=== PATIENT | female | born 1980 | race Asian ===

== ENCOUNTER 2021-10-04 11:03 | Emergency (ER) | payer BC ==
[2021-10-04] MEDS ORDERED: Sodium Chloride 0.9% 2.5 ML Syringe FLUSH PRN (11:37)
[2021-10-04] MEDS ORDERED: Sodium Chloride 0.9% 10 ML Syringe FLUSH PRN (11:37)
[2021-10-04] MEDS ORDERED: Sodium Chloride 0.9% 1,000 ML IV ONE (11:44)
[2021-10-04] MEDS ORDERED: Ondansetron 4 MG/2 ML SDV IVPUSH ONE (11:44)
[2021-10-04 12:02] LABS: BLOOD UREA NITROGEN,BUN 28 mg/dL (7.0-18.0); CARBON DIOXIDE,CO2 24.4 mmol/L (21.0-32.0); CHLORIDE,CL 103 mmol/L (98-107); GLUCOSE RANDOM 87 mg/dL (74-106); LIPASE 130 U/L (73-393); POTASSIUM,K 3.9 mmol/L (3.5-5.1); SODIUM,NA 137 mmol/L (136-145)
[2021-10-04 13:16] LABS: C. TRACHOMATIS BY PCR NOT DETECTED; N. GONORRHOEAE BY PCR NOT DETECTED
== END 2021-10-04 13:57 | disposition home or self-care (01) ==
LOC: MW.ED 11:03
DX: N76.0 Acute vaginitis (principal); B96.89 Other specified bacterial agents as the cause of diseases classified elsewhere
CPT/HCPCS: 36415; 76830; 80053; 81001; 83690; 84484; 84703; 85025; 87480; 87491; 87510; 87591; 87660; 93005; 96374; 99284; J2405; J3490; J7030

== ENCOUNTER 2021-12-06 06:34 | Day surgery (SDC) | payer BC ==
[~2021-12-06 06:34] MED LIST: Lactated Ringers 1,000 ML IV SCH
[2021-12-06] MEDS ORDERED: Propofol 200 MG/20 ML SDV ONE (07:22)
[2021-12-06] MEDS ORDERED: fentaNYL 100 MCG/2 ML SDV ONE (07:22)
[2021-12-06] MEDS ORDERED: Glycopyrrolate 0.2 MG/ML SDV ONE (08:14)
== END 2021-12-06 09:00 | disposition home or self-care (01) ==
LOC: MW.SDS 06:34
PROVIDERS: ATTEND Surgery
DX: K92.1 Melena (principal); K64.4 Residual hemorrhoidal skin tags; K64.8 Other hemorrhoids; G47.00 Insomnia, unspecified; Z87.891 Personal history of nicotine dependence; Z98.890 Other specified postprocedural states
CPT/HCPCS: 45378; 81025; J2704; J3010; J3490; J7120

== ENCOUNTER 2024-08-07 07:32 | Emergency (ER) | payer BC ==
[2024-08-07 08:29] LABS: BASOPHILS ABSOLUTE AUTO 0.03 K/uL (0.00-0.20); BASOPHILS PERCENT AUTO 0.3 % (0.0-1.0); EOSINOPHILS ABSOLUTE AUTO 0.04 K/uL (0.00-0.45); EOSINOPHILS PERCENT AUTO 0.4 % (0.0-6.0); HEMATOCRIT 40.3 % (37.0-47.0); HEMOGLOBIN 13.7 g/dL (12.0-16.0); IMMATURE GRAN ABSOLUTE AUTO 0.03 K/uL (0.00-0.05); IMMATURE GRAN PERCENT AUTO 0.3 % (0.0-0.4); LYMPHOCYTES ABSOLUTE AUTO 2.27 K/uL (1.00-4.80); MEAN CORPUSCULAR HEMOGLOBIN 28.7 pg (28.0-32.0); MEAN CORPUSCULAR VOLUME 84.3 fL (83.0-99.0); MEAN PLATELET VOLUME 8.4 fL (9.4-12.3); MONOCYTES ABSOLUTE AUTO 0.37 K/uL (0.00-0.80); MONOCYTES PERCENT AUTO 3.8 % (0.0-8.0); NEUTROPHILS ABSOLUTE AUTO 7.12 K/uL (1.80-7.70); NEUTROPHILS PERCENT AUTO 72.2 % (41.0-71.0); PLATELET COUNT,PLT 355 K/uL (150-400); RED BLOOD CELL COUNT 4.78 M/uL (4.10-5.30); WHITE BLOOD CELL COUNT,WBC 9.86 K/uL (3.9-11.3)
[2024-08-07] MEDS: Acetaminophen 500 MG Tab PO ONE (08:29)
[2024-08-07 08:30] LABS: APPEARANCE,URINE CLEAR; BILIRUBIN,URINE NEGATIVE (NEGATIVE); COLOR,URINE YELLOW; GLUCOSE,URINE NEGATIVE (NEGATIVE); KETONES,URINE NEGATIVE (NEGATIVE); LEUKOCYTE ESTERASE,URINE NEGATIVE (NEGATIVE); NITRITE,URINE NEGATIVE (NEGATIVE); OCCULT BLOOD,URINE SMALL (NEGATIVE); PH,URINE 5.5 (5.0-8.0); PROTEIN,URINE NEGATIVE (NEGATIVE); UROBILINOGEN,URINE 0.2 EU/dL (<2.0)
[2024-08-07] MEDS: Sodium Chloride 0.9% 1,000 ML IV ONE ×2 (08:30→08:43)
[2024-08-07] MEDS: Ketorolac 30 MG/ML SDV IVPUSH ONE (08:30)
[2024-08-07 08:39] LABS: BACTERIA,URINE RARE (NEGATIVE); EPITHELIAL CELLS,URINE RARE (NONE-FEW); WBC,URINE 0-1 (0-5/HPF)
[2024-08-07 08:58] LABS: A/G RATIO 0.9 (0.9-1.6); ALANINE AMINOTRANSFERASE,ALT 21 IU/L (14-63); ALBUMIN 3.7 g/dL (3.4-5.0); ALKALINE PHOSPHATASE 64 U/L (46-116); ASPARTATE AMNIOTRANSFERASE,AST 18 IU/L (15-37); BILIRUBIN TOTAL 0.4 mg/dL (0.2-1.0); BLOOD UREA NITROGEN,BUN 13 mg/dL (7.0-18.0); CALCIUM 8.7 mg/dL (8.5-10.1); CARBON DIOXIDE,CO2 21.7 mmol/L (21.0-32.0); CHLORIDE,CL 99 mmol/L (98-107); CREATININE 0.8 mg/dL (0.6-1.0); EST CRCL DRUG DOSING (CG) 68.42 mL/min; ESTIMATED GFR 94 mL/min (>60); GLUCOSE RANDOM 116 mg/dL (74-106); MAGNESIUM 1.8 mg/dL (1.8-2.4); POTASSIUM,K 3.1 mmol/L (3.5-5.1); PRO B-TYPE NATRIUR PEPT,BNPPRO 64 pg/mL (0-125); PROTEIN TOTAL,TP 7.8 g/dL (6.4-8.2); SODIUM,NA 137 mmol/L (136-145)
== END 2024-08-07 10:38 | disposition home or self-care (01) ==
LOC: MW.ED 07:32
DX: B34.9 Viral infection, unspecified (principal); R42 Dizziness and giddiness; E86.0 Dehydration; R00.0 Tachycardia, unspecified; R53.1 Weakness
CPT/HCPCS: 36415; 71045; 80053; 81001; 83605; 83735; 83880; 84484; 84703; 85025; 87428; 93005; 96361; 96374; 99284; A9270; J1885; J7030; 93010; 99283

== ENCOUNTER 2024-11-16 09:25 | Emergency (ER) | payer BC ==
[2024-11-16 10:02] LABS: BASOPHILS ABSOLUTE AUTO 0.04 K/uL (0.00-0.20); BASOPHILS PERCENT AUTO 0.5 % (0.0-1.0); EOSINOPHILS ABSOLUTE AUTO 0.23 K/uL (0.00-0.45); EOSINOPHILS PERCENT AUTO 2.7 % (0.0-6.0); HEMATOCRIT 41.4 % (37.0-47.0); HEMOGLOBIN 14.1 g/dL (12.0-16.0); IMMATURE GRAN ABSOLUTE AUTO 0.05 K/uL (0.00-0.05); IMMATURE GRAN PERCENT AUTO 0.6 % (0.0-0.4); LYMPHOCYTES ABSOLUTE AUTO 2.97 K/uL (1.00-4.80); LYMPHOCYTES PERCENT AUTO 34.4 % (24.0-44.0); MEAN CORPUSCULAR HGB CONC 34.1 g/dL (32.0-36.0); MEAN PLATELET VOLUME 8.8 fL (9.4-12.3); MONOCYTES ABSOLUTE AUTO 0.39 K/uL (0.00-0.80); MONOCYTES PERCENT AUTO 4.5 % (0.0-8.0); NEUTROPHILS ABSOLUTE AUTO 4.95 K/uL (1.80-7.70); NEUTROPHILS PERCENT AUTO 57.3 % (41.0-71.0); PLATELET COUNT,PLT 308 K/uL (150-400); RED BLOOD CELL COUNT 4.87 M/uL (4.10-5.30); WHITE BLOOD CELL COUNT,WBC 8.63 K/uL (3.9-11.3)
[2024-11-16 10:11] LABS: ALBUMIN 3.5 g/dL (3.4-5.0); CALCIUM 8.5 mg/dL (8.5-10.1); CARBON DIOXIDE,CO2 24.6 mmol/L (21.0-32.0); CREATININE 0.8 mg/dL (0.6-1.0); EST CRCL DRUG DOSING (CG) 68.42 mL/min; POTASSIUM,K 4.1 mmol/L (3.5-5.1); PROTEIN TOTAL,TP 7.6 g/dL (6.4-8.2)
[2024-11-16 10:12] LABS: A/G RATIO 0.9 (0.9-1.6); BILIRUBIN TOTAL 0.4 mg/dL (0.2-1.0); MAGNESIUM 1.8 mg/dL (1.8-2.4)
[2024-11-16 10:18] LABS: APPEARANCE,URINE CLEAR; BILIRUBIN,URINE NEGATIVE (NEGATIVE); COLOR,URINE YELLOW; GLUCOSE,URINE NEGATIVE (NEGATIVE); KETONES,URINE NEGATIVE (NEGATIVE); LEUKOCYTE ESTERASE,URINE SMALL (NEGATIVE); NITRITE,URINE NEGATIVE (NEGATIVE); OCCULT BLOOD,URINE SMALL (NEGATIVE); PROTEIN,URINE NEGATIVE (NEGATIVE); UROBILINOGEN,URINE 0.2 EU/dL (<2.0)
[2024-11-16 10:27] LABS: BACTERIA,URINE FEW (NEGATIVE); EPITHELIAL CELLS,URINE MODERATE (NONE-FEW)
[2024-11-16 11:01] LABS: CANDIDA DNA PROBE NEGATIVE (NEGATIVE); GARDNERELLA DNA PROBE POSITIVE (NEGATIVE); TRICHOMONAS DNA PROBE NEGATIVE (NEGATIVE)
[2024-11-16 11:47] LABS: C. TRACHOMATIS BY PCR NOT DETECTED; N. GONORRHOEAE BY PCR NOT DETECTED
== END 2024-11-16 12:40 | disposition home or self-care (01) ==
LOC: MW.ED 09:25
DX: G47.00 Insomnia, unspecified (principal); N76.0 Acute vaginitis; R53.1 Weakness; R94.5 Abnormal results of liver function studies; Z75.3 Unavailability and inaccessibility of health-care facilities
CPT/HCPCS: 36415; 80053; 81001; 81025; 82947; 83735; 85025; 87086; 87480; 87491; 87510; 87591; 87660; 93005; 93010; 99284; 99285